=== PATIENT | female | born 1960 | race African-American/Black ===

== ENCOUNTER → 2017-11-10 | Outpatient (CLI) | payer OTHER ==
[~2017-11-10] MED LIST: CATAFLAM50 MG PO; ORPH100T PO; SEPTRA DS TABLE1 TAB PO; SYNTHROID100 MCG; SYNTHROID100 MCG PO; TESSALON PERLE100 MG PO
== END | disposition home or self-care (01) ==
LOC: PPHC 09:39
DX: B34.9 Viral infection, unspecified (principal)